=== PATIENT | female | born 1940 | race Caucasian/White ===

== ENCOUNTER 2021-04-02 18:43 | Emergency (ER) | payer OTHER ==
[~2021-04-02] VITALS: Ht 154.9 cm; Wt 70.3 kg
[2021-04-02] MEDS ORDERED: IV NORMAL SALINE 500 ML BAG IV ONE (19:00)
[2021-04-02] MEDS ORDERED: ONDANSETRON 4 MG/2 ML VIAL IV ONE (19:00)
[2021-04-02] MEDS ORDERED: HYDROMORPHONE 1 MG/1 ML DISP.SYRIN IV ONE (19:00)
[2021-04-02] MEDS ORDERED: NITROGLYCERIN OINT 1 GM PACKET TP ONE ×2 (19:00→19:11)
[2021-04-02] MEDS ORDERED: METOPROLOL TARTRATE 50 MG TABLET PO ONE (19:00)
[2021-04-02] MEDS ORDERED: LORAZEPAM 0.5 MG TABLET PO ONE (19:00)
--- NOTE | 2021-04-02 19:00 | NUR ---
Pleasant 80 y/o female presents to ED from [facility] for substernal chestpain that is 8/10 - radiates upward and laterally to her left - described as sharp - non provoked - she was given nitroglycerin and aspirin in the field. Patient has history of HTN and insulin dependent diabetes. Blood sugar in field was in the 150s. A&Ox4. Calm and cooperative and very pleasant. Able to make needs known. No neurological deficits. PERRLA. Ambulatory w/walker but walker is back at her facillity. No SI/HI/AH/VH. Normal rate & rhythm. (HR80). BP 158/88 on arrival. No palpitations, no diaphoresis, no murmurs. Afebrile. Pulses equal bilaterally. Saturations >94% on room air. no SOB. no labored breathing. Lung sounds clear bilaterally. GI/: Continent. No abdominal guarding, tenderness, or distention. Normoactive bowel sounds. No n/v/d or constipation. Misc: Skin intact. obese? malnourished? homeless? blood sugar?
[2021-04-02] MEDS ORDERED: ONDANSETRON 4 MG/2 ML VIAL ONE (19:10)
[2021-04-02] MEDS ORDERED: METOPROLOL TARTRATE 50 MG TABLET ONE (19:10)
[2021-04-02] MEDS ORDERED: HYDROMORPHONE 1 MG/1 ML DISP.SYRIN ONE (19:12)
[2021-04-02] MEDS ORDERED: LORAZEPAM 0.5 MG TABLET ONE (19:12)
[2021-04-02 19:20] VITALS: BP 158/78
[2021-04-02 19:21] LABS: HEMATOCRIT 33.8 % (31.2-41.9); MEAN CORPUSCULAR HEMOGLOBIN 28.9 uug (24.7-32.8); MEAN CORPUSCULAR VOLUME 85.1 fL (75.5-95.3); PLATELET COUNT (AUTO) 300 K/uL (179-408)
[2021-04-02] MEDS ORDERED: CEPH500T PO (19:21)
[2021-04-02] MEDS ORDERED: LOSA50TA39 PO (19:21)
[2021-04-02] MEDS ORDERED: BUSP5TAB3 PO (19:21)
[2021-04-02] MEDS ORDERED: ATOR80TA PO (19:21)
[2021-04-02] MEDS ORDERED: TRAZ-182 PO (19:21)
[2021-04-02] MEDS ORDERED: ACET-73 PO (19:21)
[2021-04-02] MEDS ORDERED: CEFP200T14 PO (19:21)
[2021-04-02] MEDS ORDERED: PREG50CA PO (19:21)
[2021-04-02] MEDS ORDERED: LORA-258 PO (19:21)
[2021-04-02] MEDS ORDERED: BLOO-668 IN (19:21)
[2021-04-02] MEDS ORDERED: RISP0.5T65 PO (19:21)
[2021-04-02] MEDS ORDERED: TRAM50TA2 PO (19:21)
[2021-04-02] MEDS ORDERED: INSU100V7 SQ ×2 (19:21)
[2021-04-02] MEDS ORDERED: TEMA7.5C PO (19:21)
[2021-04-02] MEDS ORDERED: DOCU240C26 PO (19:21)
[2021-04-02] MEDS ORDERED: RISP2TAB85 PO (19:21)
[2021-04-02] MEDS ORDERED: AMLO-212 PO (19:21)
[2021-04-02] MEDS ORDERED: LEVO75TA7 PO (19:21)
[2021-04-02] MEDS ORDERED: GLIP5TAB13 PO (19:21)
[2021-04-02 19:26] LABS: CARBON DIOXIDE 26 mmol/L (21-32); CHLORIDE 95 mmol/L (98-107); CREATININE 0.9 mg/dL (0.6-1.3); GLUCOSE 169 mg/dL (74-106); POTASSIUM 4.3 mmol/L (3.5-5.1); UREA NITROGEN, BLOOD 32 mg/dL (7-18)
[2021-04-02] MEDS: MAGNESIUM SULFATE/D5W 100 ML IV SCH ×2 (20:45→21:45)
[2021-04-02 22:04] LABS: *BILIRUBIN,URIN NEGATIVE (NEGATIVE); *BLOOD, URINE NEGATIVE (NEGATIVE); *CLARITY,URINE CLEAR (CLEAR); *KETONES,URINE NEGATIVE (NEGATIVE); *UROBILINOGEN,URINE 0.2 E.U./dl (NORMAL); LEUKOCYTE ESTERASE ,URINE NEGATIVE (NEGATIVE); NITRITE, URINE NEGATIVE (NEGATIVE); PH,URINE 6.5 (5.0-8.0); UGLUCOSE NEGATIVE (NEGATIVE)
[2021-04-02 22:05] LABS: *COLOR,URINE LIGHT YELLOW (YELLOW)
[2021-04-02 22:32] LABS: BACTERIA,URINE NONE SEEN /HPF (NONE SEEN); RBC,URINE 0-3 /HPF (0-3); SQUAMOUS EPITHELIAL CELL,UR FEW /HPF (NONE SEEN)
--- NOTE | 2021-04-03 00:40 | NUR ---
Jan from [facility] states that patient is accepted for admission using the "Believe me" policy.
--- NOTE | 2021-04-03 00:53 | NUR ---
Dr. Vuong spoke with Dr. Richter of [facility].
--- NOTE | 2021-04-03 02:12 | NUR ---
[facility] "still working on it" per transfer center.
--- NOTE | 2021-04-03 03:35 | NUR ---
Report given to Ellie AMAYA at [facility] - Patient is to be going to Room 4064 Bed A under the care of [facility] scheduled for pickup - ETA 1403
--- NOTE | 2021-04-03 04:47 | NUR ---
entertainment dancer are here for transport. Confirmed that patient is being transferred to [facility] - Room 4064 - RN Ellie. VSS. All pertinent information given in report. All belongings taken with patient.
== END 2021-04-03 04:58 | disposition short-term general hospital (02) ==
LOC: ER 18:46
DX: I24.9 Acute ischemic heart disease, unspecified (principal); Z87.891 Personal history of nicotine dependence; E11.9 Type 2 diabetes mellitus without complications; E83.42 Hypomagnesemia; E87.1 Hypo-osmolality and hyponatremia; Z20.822 Contact with and (suspected) exposure to COVID-19; Z79.4 Long term (current) use of insulin; Z79.899 Other long term (current) drug therapy; Z88.5 Allergy status to narcotic agent; Z88.8 Allergy status to other drugs, medicaments and biological substances; Z88.6 Allergy status to analgesic agent; Z91.040 Latex allergy status; I10 Essential (primary) hypertension
CPT/HCPCS: 36415; 71045; 80048; 81001; 82962; 83735; 83880; 84484 ×2; 85025; 85730; 87426; 93005; 96361; 96365; 96375; 99285; J1170; J2405; J3475; 70030-TC; A4663; J7030

== ENCOUNTER 2021-05-16 19:51 | Emergency (ER) | payer OTHER ==
[~2021-05-16] VITALS: Ht 162.6 cm; Wt 70.3 kg
[~2021-05-16 19:51] MED LIST: ACET-73 PO; AMLO-212 PO; ATOR80TA PO; BLOO-668 IN; BUSP5TAB3 PO; CEFP200T14 PO; CEPH500T PO; DOCU240C26 PO; GLIP5TAB13 PO; INSU100V7 SQ; LEVO75TA7 PO; LORA-258 PO; LOSA50TA39 PO; PREG50CA PO; RISP0.5T65 PO; RISP2TAB85 PO; TEMA7.5C PO; TRAM50TA2 PO; TRAZ-182 PO
--- NOTE | 2021-05-16 20:10 | NUR ---
PATIENT BIB BRA [id number] FROM [facility] FOR C/O DYSURIA THAT STARTED 2 DAYS AGO.PATIENT [id number].
--- NOTE | 2021-05-16 20:18 | NUR ---
DR. CLANCY AT BEDSIDE FOR MSE.
[2021-05-16 20:37] LABS: *BILIRUBIN,URIN NEGATIVE (NEGATIVE); *BLOOD, URINE 1+ (NEGATIVE); *CLARITY,URINE CLOUDY (CLEAR); *COLOR,URINE YELLOW (YELLOW); *KETONES,URINE NEGATIVE (NEGATIVE); *UROBILINOGEN,URINE 0.2 E.U./dl (NORMAL); LEUKOCYTE ESTERASE ,URINE 1+ (NEGATIVE); NITRITE, URINE NEGATIVE (NEGATIVE)
[2021-05-16 20:43] LABS: UGLUCOSE 2+ (NEGATIVE)
[2021-05-16 20:45] LABS: HEMATOCRIT 31.3 % (31.2-41.9); MEAN CORPUSCULAR HEMOGLOBIN 28.5 uug (24.7-32.8); MEAN CORPUSCULAR VOLUME 84.3 fL (75.5-95.3); PLATELET COUNT (AUTO) 245 K/uL (179-408)
[2021-05-16 20:45] LABS: BACTERIA,URINE MANY /HPF (NONE SEEN); SQUAMOUS EPITHELIAL CELL,UR FEW /HPF (NONE SEEN); URINE AMORPHOUS URATE MODERATE /HPF; WBC,URINE TNTC /HPF (0-3)
[2021-05-16 20:52] LABS: CREATININE 1.1 mg/dL (0.6-1.3); POTASSIUM 4.5 mmol/L (3.5-5.1)
[2021-05-16] MEDS ORDERED: PHENAZOPYRIDINE HCL 100 MG TABLET PO ONE (21:00)
[2021-05-16] MEDS ORDERED: CEFTRIAXONE 1 G in IV DEXTROSE 5% 50 ML IV ONE (21:00)
[2021-05-16] MEDS ORDERED: CEPH500C2 PO (21:06)
[2021-05-16] MEDS ORDERED: PHEN-705 PO (21:06)
[2021-05-16] MEDS ORDERED: CEFTRIAXONE /D5W 50ML IVPB **ER PYXIS IV ONE (21:13)
[2021-05-16] MEDS ORDERED: PHENAZOPYRIDINE HCL 100 MG TABLET ONE (21:13)
--- NOTE | 2021-05-16 21:32 | NUR ---
TELEPHONE CALL TO STEPHANIE SPOKE TO MALIK AND ARRANGE TRANSPORTATION BACK TO [facility]. ETA 30-45 MINS.
[2021-05-16] MEDS ORDERED: IBUPROFEN 600 MG TABLET ONE (21:42)
--- NOTE | 2021-05-16 21:42 | NUR ---
Administer Motrin 600mg PO per Dr Vuong's verbal order. Dr Vuong did not enter order on EMar.
--- NOTE | 2021-05-16 22:00 | NUR ---
Patient picked up by [facility] ambulance #[id number] accompanied by 2 paramedics via rhooven, back to [facility]. Telephone call to [facility] spoke to Wendy and made aware that pt is returning back and states understanding.
[2021-05-16 22:59] VITALS: BP 150/78
[2021-05-19] MEDS ORDERED: IBUPROFEN 600 MG TABLET PO ONE (19:00)
== END 2021-05-16 22:00 ==
LOC: ER 19:53
DX: N30.90 Cystitis, unspecified without hematuria (principal); E11.9 Type 2 diabetes mellitus without complications; Z79.4 Long term (current) use of insulin; Z85.3 Personal history of malignant neoplasm of breast; Z87.440 Personal history of urinary (tract) infections; Z88.5 Allergy status to narcotic agent; Z88.8 Allergy status to other drugs, medicaments and biological substances; Z88.6 Allergy status to analgesic agent; Z91.040 Latex allergy status; Z79.899 Other long term (current) drug therapy
CPT/HCPCS: 36415; 80048; 81001; 83735; 85025; 87077; 87086; 87186; 96365; 99284; J0696; A4663

== ENCOUNTER 2021-05-20 14:45 | Emergency (ER) | payer OTHER ==
[~2021-05-20] VITALS: Ht 160 cm; Wt 70.3 kg
[~2021-05-20 14:45] MED LIST changes: +CEPH500C2 PO; +PHEN-705 PO
--- NOTE | 2021-05-20 15:18 | NUR ---
PT IS ROOM #2A. DR ROMERO EVALUATED THE PT.
--- NOTE | 2021-05-20 15:20 | NUR ---
PT AND HER CAREGIVER ARE UNABLE TO PROVIDE PT's HOME MEDICATION INFORMATION. PT's RELATIVES ARE GOING TO BRING IT LATER.
[2021-05-20 15:25] LABS: HEMATOCRIT 31.4 % (31.2-41.9); MEAN CORPUSCULAR HEMOGLOBIN 29.2 uug (24.7-32.8); MEAN CORPUSCULAR VOLUME 84.8 fL (75.5-95.3); PLATELET COUNT (AUTO) 226 K/uL (179-408)
[2021-05-20 15:28] LABS: CARBON DIOXIDE 26 mmol/L (21-32); CHLORIDE 102 mmol/L (98-107); CREATININE 1.1 mg/dL (0.6-1.3); GLUCOSE 243 mg/dL (74-106); POTASSIUM 4.4 mmol/L (3.5-5.1); UREA NITROGEN, BLOOD 31 mg/dL (7-18)
[2021-05-20 15:34] LABS: ALANINE AMINOTRANSFERASE 31 U/L (14-59); ALKALINE PHOSPHATASE 56 U/L (50-136); ASPARTATE AMINOTRANSFERASE 18 U/L (15-37); BILIRUBIN,TOTAL 0.3 mg/dL (0.2-1.0); TOTAL PROTEIN, SERUM 5.9 g/dL (6.4-8.2)
[2021-05-20 15:35] LABS: BILIRUBIN,DIRECT < 0.1 mg/dL (0.0-0.2)
--- NOTE | 2021-05-20 19:13 | NUR ---
IV removed. Catheter intact and site benign. Pressure and 4x4 gauze applied to site. No bleeding noted.
--- NOTE | 2021-05-20 19:14 | NUR ---
Patient discharged to home in stable condition. Written and verbal after care instructions given. Patient verbalizes understanding of instructions. Stressed follow up or return to ER for worsening s/s.
[2021-05-20 20:14] VITALS: BP 139/72
== END 2021-05-20 20:15 ==
LOC: ER 14:45
DX: R07.2 Precordial pain (principal); G30.9 Alzheimer's disease, unspecified; F02.80 Dementia in other diseases classified elsewhere, unspecified severity, without behavioral disturbance, psychotic disturbance, mood disturbance, and anxiety; E78.5 Hyperlipidemia, unspecified; Z85.3 Personal history of malignant neoplasm of breast; Z87.891 Personal history of nicotine dependence; Z88.5 Allergy status to narcotic agent; Z88.6 Allergy status to analgesic agent; Z91.040 Latex allergy status; Z79.4 Long term (current) use of insulin; D64.9 Anemia, unspecified; E11.65 Type 2 diabetes mellitus with hyperglycemia; R94.31 Abnormal electrocardiogram [ECG] [EKG]
CPT/HCPCS: 36415; 70030-TC; 71045; 85025; 93005; A4663

== ENCOUNTER 2021-06-16 23:36 | Emergency (ER) | payer OTHER ==
[~2021-06-16] VITALS: Ht 154.9 cm; Wt 68.5 kg
--- NOTE | 2021-06-16 23:59 | NUR ---
Dr. Beltran on bedside for MSE.
[2021-06-17] MEDS ORDERED: IV NORMAL SALINE 1000 ML BAG IV ONE
[2021-06-17] MEDS ORDERED: INSULIN REGULAR, HUMAN 300 UNIT/3 ML VIAL IV ONE (00:15)
[2021-06-17] MEDS ORDERED: INSULIN REGULAR, HUMAN 300 UNIT/3 ML VIAL ONE (00:24)
[2021-06-17 00:28] LABS: HEMATOCRIT 32.9 % (31.2-41.9); MEAN CORPUSCULAR HEMOGLOBIN 28.6 uug (24.7-32.8); MEAN CORPUSCULAR VOLUME 82.4 fL (75.5-95.3); PLATELET COUNT (AUTO) 254 K/uL (179-408)
[2021-06-17 00:33] LABS: CREATININE 1.2 mg/dL (0.6-1.3); POTASSIUM 4.1 mmol/L (3.5-5.1)
--- NOTE | 2021-06-17 00:45 | NUR ---
Patient provided bedpan and urinated. Edyta care provided.
[2021-06-17 00:47] LABS: BILIRUBIN,DIRECT 0.1 mg/dL (0.0-0.2); BILIRUBIN,TOTAL 0.4 mg/dL (0.2-1.0); TOTAL PROTEIN, SERUM 6.5 g/dL (6.4-8.2)
--- NOTE | 2021-06-17 00:54 | NUR ---
Dr. Beltran notified of patient UD=[id number].
[2021-06-17 00:55] LABS: *BILIRUBIN,URIN NEGATIVE (NEGATIVE); *BLOOD, URINE 1+ (NEGATIVE); *CLARITY,URINE SLIGHTLY CLOUDY (CLEAR); *COLOR,URINE YELLOW (YELLOW); *KETONES,URINE NEGATIVE (NEGATIVE); *UROBILINOGEN,URINE 0.2 E.U./dl (NORMAL); LEUKOCYTE ESTERASE ,URINE NEGATIVE (NEGATIVE); NITRITE, URINE POSITIVE (NEGATIVE); PH,URINE 5.5 (5.0-8.0); UGLUCOSE 2+ (NEGATIVE)
[2021-06-17] MEDS ORDERED: ENALAPRILAT DIHYDRATE 1.25 MG/1 ML VIAL IV ONE ×2 (01:00→01:03)
[2021-06-17 01:03] LABS: BACTERIA,URINE MANY /HPF (NONE SEEN); WBC,URINE 0-3 /HPF (0-3)
--- NOTE | 2021-06-17 01:13 | NUR ---
Telephone call to [facility] to have Ania URIBE talk to Dr. Beltran.
--- NOTE | 2021-06-17 01:20 | NUR ---
BP taken 154/72, Hr 87, O2 sat 97% on RA. Patient asleep lying comfortably.
--- NOTE | 2021-06-17 01:30 | NUR ---
Dr. Beltran called patient Raghu and updated on patient condition. 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
--- NOTE | 2021-06-17 01:33 | NUR ---
Dr Beltran cable television line technician with Dr Thacker from [place].
--- NOTE | 2021-06-17 01:34 | NUR ---
Report given to nurse Goss from [facility] and states understanding.
--- NOTE | 2021-06-17 02:14 | NUR ---
Patient discharged to [facility] in stable condition. Written and verbal after care instructions given to patient Raghu who picked up patient and will be transporting back patient to [facility]. Patient verbalizes understanding of instructions. Stressed follow up or return to ER for worsening s/s. All belongings with patient.
[2021-06-17 02:17] VITALS: BP 114/53
== END 2021-06-17 02:15 ==
LOC: ER 23:45
DX: E10.65 Type 1 diabetes mellitus with hyperglycemia (principal); Z79.4 Long term (current) use of insulin; G30.9 Alzheimer's disease, unspecified; F02.80 Dementia in other diseases classified elsewhere, unspecified severity, without behavioral disturbance, psychotic disturbance, mood disturbance, and anxiety; I10 Essential (primary) hypertension; E87.1 Hypo-osmolality and hyponatremia; Z79.899 Other long term (current) drug therapy; Z88.5 Allergy status to narcotic agent; Z88.8 Allergy status to other drugs, medicaments and biological substances; Z91.040 Latex allergy status; E78.5 Hyperlipidemia, unspecified; Z85.3 Personal history of malignant neoplasm of breast
CPT/HCPCS: 36415 ×2; 80048; 80076; 81001; 82009; 82962 ×2; 83605; 83690; 85025; 87077; 87086; 87186; 93005; 96361; 96374; 96375; 99284; J1815; J3490; A4663; J7030

== ENCOUNTER 2021-06-23 22:01 | Emergency (ER) | payer OTHER ==
[~2021-06-23] VITALS: Ht 154.9 cm; Wt 64.0 kg
--- NOTE | 2021-06-23 22:10 | NUR ---
Pt bib RA for high BG. Pt placed in room ED1B, connected to bedside monitor, VSS. Pt has good color, temp and appearance. Slightly pale. AAOx4, denies any pain, nausea, sob, dizziness or discomfort. No s/sx of distress present.
[2021-06-23] MEDS ORDERED: IV NORMAL SALINE 1000 ML BAG IV ONE (22:45)
[2021-06-23 22:51] LABS: MEAN CORPUSCULAR HEMOGLOBIN 27.8 uug (24.7-32.8); MEAN CORPUSCULAR VOLUME 82.3 fL (75.5-95.3); PLATELET COUNT (AUTO) 300 K/uL (179-408)
[2021-06-23 23:06] LABS: CREATININE 1.1 mg/dL (0.6-1.3); POTASSIUM 4.5 mmol/L (3.5-5.1)
[2021-06-23 23:12] LABS: BILIRUBIN,DIRECT 0.1 mg/dL (0.0-0.2); BILIRUBIN,TOTAL 0.3 mg/dL (0.2-1.0); TOTAL PROTEIN, SERUM 6.3 g/dL (6.4-8.2)
[2021-06-23 23:17] LABS: MAGNESIUM 1.5 mg/dL (1.8-2.4)
[2021-06-23] MEDS ORDERED: INSULIN REGULAR, HUMAN 300 UNIT/3 ML VIAL IV ONE (23:45)
[2021-06-23] MEDS ORDERED: MAGNESIUM OXIDE 400 MG TABLET PO ONE (23:45)
[2021-06-24] MEDS ORDERED: CEFP200T14 PO (00:02)
[2021-06-24] MEDS ORDERED: MAGN400C PO (00:05)
[2021-06-24] MEDS ORDERED: INSULIN NPH 1,000 UNITS/10 ML VIAL SQ ONE (02:19)
[2021-06-24] MEDS ORDERED: INSULIN REGULAR, HUMAN 300 UNIT/3 ML VIAL ONE (02:20)
--- NOTE | 2021-06-24 02:20 | NUR ---
Pt placed on bedpan for approx 45 min, to collect specimen of urine for UA, however, pt was unable to void. Pt removed from bedpan and EDMD informed of inability to collect sample. EDMD said it was unneccessary and that he would cancel ua order. In and out cath never performed for it was deemed unneccessary by EDMD. Pt will be DCed back to skilled nursing without ua.
[2021-06-24] MEDS ORDERED: MAGNESIUM OXIDE 400 MG TABLET ONE (02:42)
--- NOTE | 2021-06-24 03:00 | NUR ---
Pt's wet diaper removed and pericare provided. New fresh diaper applied. Pt is clean and dry and in pos of comfort. Pt very appreiative.
[2021-06-24] MEDS ORDERED: INSULIN REGULAR, HUMAN 300 UNIT/3 ML VIAL IV ONE (03:15)
--- NOTE | 2021-06-24 04:20 | NUR ---
Pt and given DC instructions and medication info. Pt's acknowledged understanding of DC instructions and said he would relay the message to her board and care. Pt has good color, temp and appearance, VSS, PE WNL. DP=[id number] after second 8 units of regular. Pt told to keep a close eye on blood glucose. Pt had sign out. Pt wheeled out to 's car via wc and assisted into car by me personally. Pt very greatful and thankful of services recieved.
[2021-06-24 05:44] VITALS: BP 132/85
== END 2021-06-24 04:20 ==
LOC: ER 22:03
DX: E11.65 Type 2 diabetes mellitus with hyperglycemia (principal); E78.5 Hyperlipidemia, unspecified; I10 Essential (primary) hypertension; N39.0 Urinary tract infection, site not specified; Z79.4 Long term (current) use of insulin; Z85.3 Personal history of malignant neoplasm of breast; G30.9 Alzheimer's disease, unspecified; F02.80 Dementia in other diseases classified elsewhere, unspecified severity, without behavioral disturbance, psychotic disturbance, mood disturbance, and anxiety; Z88.8 Allergy status to other drugs, medicaments and biological substances; Z88.5 Allergy status to narcotic agent; Z88.6 Allergy status to analgesic agent; Z91.040 Latex allergy status
CPT/HCPCS: 36415; 71045; 80048; 80076; 82009; 82962 ×3; 83735; 83880; 83930; 84100; 84484; 85025; 85730; 93005; 96361; 96374; 96376; 99285; J1815; 70030-TC